=== PATIENT | male | born 1990 | race Caucasian/White ===

== ENCOUNTER 2018-01-13 12:58 | Emergency (ER) | payer MEDICAID ==
--- NOTE | 2018-01-13 13:44 | ED PDOC ---
HPI: CCC, URI, Sore Throat Time Seen by Provider: 01/13/18 13:10 Chief Complaint (Nursing): ENT Problem Chief Complaint (Provider): ENT Problem History Per: Patient History/Exam Limitations: no limitations Onset/Duration Of Symptoms: Days (x2) Current Symptoms Are (Timing): Still Present Additional Complaint(s): 27 year old male with no significant pmHx, presents to ED with complaints of sore throat and subjective fever for 2 days. Patient reports having had right- sided ear pain prior to onset, however, symptom resolved spontaneously. He additionally states that he kissed a female partner a few days ago with similar symptoms. Patient states he has some mild abdominal discomfort that may be attributed to hunger as throat pain prevents him from eating normally. O therwise, he denies nausea, vomiting, diarrhea, cough, nasal congestion, shortness of breath, chest pain, or receiving a flu shot this year. Patient has been treating symptoms with Benadryl (last dose this morning) and Motrin (last dose was yesterday afternoon). PCP: none provided Past Medical History Reviewed: Historical Data, Nursing Documentation, Vital Signs Vital Signs: Last Vital Signs Temp 100.7 F H 01/13/18 13:06 Pulse 101 H 01/13/18 13:06 Resp BP 126/75 01/13/18 13:06 Pulse Ox 99 01/13/18 13:06 - Medical History PMH: No Chronic Diseases - Surgical History Surgical History: No Surg Hx - Family History Family History: States: Unknown Family Hx - Immunization History Hx Tetanus Toxoid Vaccination: No Hx Influenza Vaccination: No Hx Pneumococcal Vaccination: No - Home Medications Home Medications: Ambulatory Orders Medication Instructions Recorded Acetaminophen [Tylenol 325mg tab] 650 mg PO Q6 PRN 5 Days tab 01/13/18 - Allergies Allergies/Adverse Reactions: Allergies Allergy/AdvReac Type Severity Reaction Status Date / Time No Known Allergies Allergy Verified 09/19/14 18:43 Review of Systems ROS Statement: Except As Marked, All Systems Reviewed And Found Negative Constitutional: Positive for: Fever (subjective) ENT: Positive for: Ear Pain (right-sided - resolved), Throat Pain. Negative for: Nose Congestion Cardiovascular: Negative for: Chest Pain Respiratory: Negative for: Cough, Shortness of Breath Gastrointestinal: Positive for: Abdominal Pain (discomfort mildly). Negative for: Nausea, Vomiting, Diarrhea Physical Exam - Reviewed Nursing Documentation Reviewed: Yes Vital Signs Reviewed: Yes - Physical Exam Appears: Positive for: No Acute Distress Head Exam: Positive for: ATRAUMATIC, NORMAL INSPECTION, NORMOCEPHALIC Skin: Positive for: Normal Color Eye Exam: Positive for: Normal appearance ENT: Positive for: TM Is/Are (nonbulging and nonerythematous), Pharyngeal Erythema, Tonsillar Exudate (bilaterally), Tonsillar Swelling (bilaterally) Cardiovascular/Chest: Positive for: Regular Rate, Rhythm, Chest Non Tender Respiratory: Positive for: Normal Breath Sounds. Negative for: Respiratory Distress Gastrointestinal/Abdominal: Positive for: Soft, Tenderness (bilateral LQ). Negative for: Guarding, Rebound Lymphatic: Positive for: Adenopathy (left tonsillar node) Neurologic/Psych: Positive for: Alert, Oriented (x3) - ECG O2 Sat by Pulse Oximetry: 99 (RA) Pulse Ox Interpretation: Normal Medical Decision Making Medical Decision Making: Time: 1330 Initial Plan: * Bicillin L-A inj * Tylenol 325mg PO * Rapid strep * [place] * Throat culture Time: 1500 --Negative for strep and mono. Time: 153 --Decadron 10mg IM inj ordered for persistent throat pain and swelling. Time: 1545 --Upon provider reevaluation, patient is medically stable and requires no further treatment in the ED at this time. Patient will be discharged home with Rx for Tylenol 650mg. Counseling was provided and all questions were answered regarding diagnosis and need for follow up with [facility]. There is agreement to discharge plan. Return if symptoms persist or worsen. Clinical Impression: Pharyngitis Scribe Attestation: Documented by Nupur Hodges, acting as a scribe for BALTA Roman Provider Scribe Attestation: All medical record entries made by the Scribe were at my direction and personally dictated by me. I have reviewed the chart and agree that the record accurately reflects my personal performance of the history, physical exam, medical decision making, and the department course for this patient. I have also personally directed, reviewed, and agree with the discharge instructions and disposition. Disposition - Clinical Impression Clinical Impression: Pharyngitis - Patient ED Disposition Is Patient to be Admitted: No Counseled Patient/Family Regarding: Studies Performed, Diagnosis, Need For Followup, Rx Given - Disposition Referrals: [facility] [Outside] Disposition: Routine/Home Disposition Time: 15:45 Condition: IMPROVED Additional Instructions: Take Tylenol or Ibuprofen for fevers or sore throat. No further antibiotics needed even if culture comes back positive. Rest for the next couple of days and stay hydrated. Prescriptions: Acetaminophen [Tylenol 325mg tab] 650 mg PO Q6 PRN 5 Days tab PRN Reason: Fever >100.4 F Instructions: Bacterial Upper Respiratory Infection, Adult (DC), Viral Pharyngitis (DC) Forms: [employer] ([place]), [facility] ED School/Work Excuse Print Language: CHINESE
[2018-01-13] MEDS ORDERED: Penicillin G Benzathine 1.2 Mill Unit/2 ml Syr IM ONE (14:00)
[2018-01-13 15:33] VITALS: BP 124/78; PULSE 90; RESP 15; TEMP 99
[2018-01-13 15:36] VITALS: O2SAT 99
[2018-01-13] MEDS ORDERED: Dexamethasone 4 mg/1 ml ONE (15:41)
== END 2018-01-13 15:43 | disposition home or self-care (01) ==
LOC: H.ER 12:58
DX: J02.9 Acute pharyngitis, unspecified (principal)
CPT/HCPCS: 86308; 87070; 87430; 96372; 99283; J0561; J1100